=== PATIENT | female | born 1995 | race Caucasian/White ===

== ENCOUNTER → 2018-08-25 | Outpatient (CLI) | payer OTHER | LOC: M.ULTRA 10:00 | DX: N83.201 Unspecified ovarian cyst, right side (principal) ==

== ENCOUNTER 2019-01-13 00:08 | Emergency (ER) | payer OTHER ==
[~2019-01-13] VITALS: Ht 160 cm; Wt 63.5 kg
[2019-01-13] MEDS ORDERED: VISTARIL 25 MG25 M1 PO (00:23)
[2019-01-13] MEDS ORDERED: CELEXA 10 MG TA10 M1 PO (00:23)
[2019-01-13 00:36] LABS: URINE BILIRUBIN NEGATIVE (Negative); URINE BLOOD 3+ (Negative); URINE CLARITY CLEAR; URINE COLOR YELLOW; URINE GLUCOSE-RANDOM NEGATIVE (Negative); URINE KETONES NEGATIVE (Negative); URINE PROTEIN 2+ (Negative); URINE UROBILINOGEN 0.2 E.U./dl (0.2-1.0)
[2019-01-13 00:38] LABS: URINE LEUKOCYTES-REFLEX 2+ (Negative); URINE NITRITE-REFLEX POSITIVE (Negative)
[2019-01-13 00:41] LABS: BACTERIA-REFLEX 1-9 Few /HPF (None Seen); CASTS None Seen /LPF (None Seen); CRYSTALS None Seen /LPF (None Seen); SQUAMOUS 0-3 Few /LPF (0-3); URINE RBC 0-2 Rare /HPF (0-2); URINE WBC-REFLEX >25 Many /HPF (0-5)
[2019-01-13] MEDS ORDERED: HYDROCODON-ACE1 EAC8 PO (00:53)
[2019-01-13] MEDS ORDERED: BACTRIM DS TAB1 EACH PO (00:53)
[2019-01-13 01:15] VITALS: BP 132/81
== END 2019-01-13 01:18 | disposition home or self-care (01) ==
LOC: M.ERS 00:08
PROVIDERS: Emergency Medicine
DX: N39.0 Urinary tract infection, site not specified (principal)